=== PATIENT | female | born 1990 | race Caucasian/White ===

== ENCOUNTER 2016-08-22 20:25 | Emergency (ER) | payer OTHER ==
[~2016-08-22] VITALS: Ht 152.4 cm; Wt 95.5 kg
[2016-08-22 20:27] VITALS: PULSE 87; TEMP 97.5
[2016-08-22 21:19] LABS: ADD PATHOLOGY DIFF REVIEW NO
[2016-08-22 21:22] LABS: HEMATOCRIT 44.2 % (37.0-47.0); MEAN CELL VOLUME 90 fl (80.0-100.0); MEAN CORPUSCULAR HEMOGLOBIN 31 pg (27.0-31.0); MEAN CORPUSCULAR HGB CONC 34 g/dl (33.0-37.0); MEAN PLATELET VOLUME 9.2 fl (7.4-10.4); PLATELET COUNT 292 K/mm3 (130-400); RED BLOOD COUNT 4.91 M/mm3 (4.10-5.30); REDCELL DISTRIBUTION WIDTH-CV 12.5 % (11.5-14.5); WHITE BLOOD COUNT 9.8 K/mm3 (4.8-10.8)
[2016-08-22 21:33] LABS: ADJUSTED CALCIUM 9.4 mg/dL (8.4-10.2); ALBUMIN 4.4 gm/dL (3.5-5.0); BILIRUBIN,TOTAL 0.6 mg/dL (0.0-1.0); C-REACTIVE PROTEIN 2.7 mg/dL (0.0-0.9); CALCIUM 9.7 mg/dL (8.4-10.2); CREATININE, serum 0.6 mg/dL (0.52-1.25); POTASSIUM 3.7 mmol/L (3.4-5.0); TOTAL PROTEIN 7.6 gm/dL (6.4-8.2)
[2016-08-22 21:35] LABS: BAND 6 % (0-10); EOSINOPHIL 1 % (0-4); NEUTROPHILS 51 % (42.0-75.2); PLATELET ESTIMATE NORMAL (NORMAL); TOTAL CELLS COUNTED 100
[2016-08-22 22:09] VITALS: BP 134/78
== END 2016-08-22 22:09 | disposition home or self-care (01) ==
LOC: COL.ER 20:25
PROVIDERS: Family Medicine
DX: R51 Headache (principal)
CPT/HCPCS: J0595